=== PATIENT | female | born 1970 | race Caucasian/White ===

== ENCOUNTER 2018-08-25 07:42 | Outpatient (CLI) | payer OTHER ==
--- NOTE | 2018-08-25 08:53 | ULT ---
THYROID ULTRASOUND: Date: 08/25/18 HISTORY: Thyroid nodules. COMPARISON: Ultrasound thyroid dated 08/22/17. FINDINGS: The right lobe of the thyroid measures 4.0 x 1.4 x 1.1 cm. The left lobe measures 3.8 x 1.0 x 1.1 cm. The isthmus is 3.0 mm in AP dimension. There is a similar appearance of the solid, hyperechoic, wide r than tall, nodule with smooth, peripheral margin without echogenic foci. No other new nodule is samantha reciated. IMPRESSION: TI-RADS 3: Mildly suspicious. Given its small size, no fine needle aspiration is recommended at this time, nor is follow-up required. POS: REID
--- NOTE | 2018-08-25 09:43 | BD ---
DEXA BONE MINERAL DENSITOMETRY EXAM, SCAN: HISTORY: Age-related osteoporosis. Hologic bone mineral density units used to evaluate bone mineral density of the lumbar spine and left hip. FINDINGS: Lumbar Spine: BMD (g/cm2) L1 1.06 T-Score: 0.6 Z-Score: 1.3 L2 1.15 T-Score: 1.1 Z-Score: 1.8 L3 1.24 T-Score: 1.4 Z-Score: 2.2 L4 1.25 T-Score: 1.7 Z-Score: 2.5 L1-L4 1.18 T-Score: 1.2 Z-Score: 1.9 Findings compatible with normal bone mineral density. Femoral Neck: 0.79 T-Score: 1.1 Z-Score: 1.8 Total Femur: 1.13 T-Score: 1.6 Z-Score: 2.0 The patient has the following 10-year major osteoporotic fracture risk of 3.2% and hip fracture risk of less than 0.1%. Impression: Normal bone mineral density. No significant increased risk of osteoporotic fracture is seen. POS: REID
== END 2018-08-25 07:43 | disposition home or self-care (01) ==
LOC: BICMAMMO 07:42
PROVIDERS: ATTEND Internal Medicine
DX: Z12.31 Encounter for screening mammogram for malignant neoplasm of breast (principal); Z13.820 Encounter for screening for osteoporosis; Z86.39 Personal history of other endocrine, nutritional and metabolic disease; Z85.3 Personal history of malignant neoplasm of breast
CPT/HCPCS: 76536; 77063; 77067; 77080